=== PATIENT | male | born 1985 | race Caucasian/White ===

== ENCOUNTER 2023-06-24 09:34 | Emergency (ER) | payer OTHER ==
[~2023-06-24] VITALS: Ht 177.8 cm; Wt 93.0 kg
[2023-06-24 09:52] VITALS: BP 128/81; TEMP 98.4; O2SAT 100
== END 2023-06-24 10:01 | disposition left against medical advice (07) ==
LOC: ER 09:38
DX: R20.0 Anesthesia of skin (principal); Z53.21 Procedure and treatment not carried out due to patient leaving prior to being seen by health care provider

== ENCOUNTER 2023-07-15 12:36 | Emergency (ER) | payer OTHER ==
[~2023-07-15] VITALS: Ht 177.8 cm; Wt 91.6 kg
[2023-07-15 13:05] VITALS: BP 124/97; TEMP 97.7; O2SAT 100
== END 2023-07-15 14:55 | disposition left against medical advice (07) ==
LOC: ER 12:46
DX: R20.0 Anesthesia of skin (principal); Z53.21 Procedure and treatment not carried out due to patient leaving prior to being seen by health care provider

== ENCOUNTER 2023-11-05 12:00 | Emergency (ER) | payer OTHER ==
[~2023-11-05] VITALS: Ht 177.8 cm; Wt 90.7 kg
[2023-11-05 13:47] VITALS: BP 133/77; TEMP 98.3; O2SAT 97
== END 2023-11-05 13:50 | disposition home or self-care (01) ==
LOC: ER 12:03
DX: S13.8XXA Sprain of joints and ligaments of other parts of neck, initial encounter (principal); S09.8XXA Other specified injuries of head, initial encounter; Z60.2 Problems related to living alone; X58.XXXA Exposure to other specified factors, initial encounter; Y93.89 Activity, other specified; Y92.89 Other specified places as the place of occurrence of the external cause; Y99.8 Other external cause status
CPT/HCPCS: 70450-TC; 72125-TC

== ENCOUNTER 2024-04-20 20:21 | Emergency (ER) | payer OTHER | END 2024-04-20 22:57 | disposition left against medical advice (07) | LOC: ER 20:22 | DX: R51.9 Headache, unspecified (principal); Z53.21 Procedure and treatment not carried out due to patient leaving prior to being seen by health care provider ==

== ENCOUNTER 2024-08-06 14:37 | Emergency (ER) | payer OTHER ==
[~2024-08-06] VITALS: Ht 180.3 cm; Wt 93.0 kg
[2024-08-06] MEDS ORDERED: ACETAMINOPHEN 325 MG TABLET ONE (16:07)
[2024-08-06] MEDS ORDERED: ONDANSETRON 4 MG TAB.RAPDIS ONE (16:08)
[2024-08-06] MEDS ORDERED: IBUPROFEN 600 MG TABLET ONE (16:08)
[2024-08-06] MEDS: IBUPROFEN 600 MG TABLET PO ONE (16:12)
[2024-08-06] MEDS: ACETAMINOPHEN 325 MG TABLET PO ONE (16:13)
[2024-08-06] MEDS: ONDANSETRON 4 MG TAB.RAPDIS PO ONE (16:13)
[2024-08-06] MEDS ORDERED: ONDA4TAB5 PO (16:26)
[2024-08-06] MEDS ORDERED: BENZ-13 PO (16:26)
[2024-08-06] MEDS ORDERED: FLUT16SP16 BNOSTRILS (16:26)
[2024-08-06] MEDS ORDERED: GUAI-425 PO (16:26)
[2024-08-06] MEDS ORDERED: ACET325C7 PO (16:26)
[2024-08-06 16:30] VITALS: BP 130/79; TEMP 98.3; O2SAT 99
== END 2024-08-06 16:31 | disposition home or self-care (01) ==
LOC: ER 14:44
DX: F10.129 Alcohol abuse with intoxication, unspecified (principal); J06.9 Acute upper respiratory infection, unspecified; R11.2 Nausea with vomiting, unspecified; Y90.9 Presence of alcohol in blood, level not specified
CPT/HCPCS: 99284; Q0162

== ENCOUNTER 2024-11-19 10:08 | Emergency (ER) | payer OTHER ==
[~2024-11-19] VITALS: Ht 177.8 cm; Wt 93.0 kg
[~2024-11-19 10:08] MED LIST: ACET325C7 PO; BENZ-13 PO; FLUT16SP16 BNOSTRILS; GUAI-425 PO; ONDA4TAB5 PO
[2024-11-19 10:14] VITALS: BP 124/72; TEMP 98.3; O2SAT 98
== END 2024-11-19 10:48 | disposition left against medical advice (07) ==
LOC: ER 10:12
DX: R06.02 Shortness of breath (principal); Z53.21 Procedure and treatment not carried out due to patient leaving prior to being seen by health care provider